=== PATIENT | male | born 1990 | race Hispanic/Latino ===

== ENCOUNTER → 2019-02-10 | Day surgery (SDC) | payer OTHER ==
[~2019-02-10] MED LIST: ACETAMINOPHEN 1000 MG/100 ML 100 ML IV ONE; BACITRACIN ZINC 15 GM OINT ONE; CEFAZOLIN SOD 1 GM/NS 50ML 50 ML IV ONE; DEXAMETHASONE SOD PHOS INJ 4 MG/ML VIAL ONE; FENTANYL CITRATE/PF 100MCG/2 ML INJ ONE; KETOROLAC TROMETHAMINE 30 MG/ML VIAL ONE; LIDOCAINE HCL 2% LOCAL INJ 5 ML SDV VIAL INJ ONE; MIDAZOLAM HCL 2 MG/2 ML VIAL ONE; ONDANSETRON HCL INJ 2MG/ML 2ML 2 MG/ML VIAL ONE; PROPOFOL IV EMULSION 10 MG/ML 20 ML VIAL ONE; SEVOFLURANE INHAL SOLN 250 ML PEN BTL ONE
[2019-02-10 15:30] VITALS: BP 124/73
--- NOTE | 2019-02-17 14:19 | Operative Report ---
DATE OF PROCEDURE: 02/10/2019 SURGEON: Alex Todd MD LABELING STRATEGIST: Burton Ortiz, certified PA. PREOPERATIVE DIAGNOSIS: Left index finger, middle phalanx open fracture. POSTOPERATIVE DIAGNOSIS: Left index finger, middle phalanx open fracture. PROCEDURE: Left middle and index finger irrigation and debridement, closed reduction, and percutaneous pin fixation. INDICATIONS: The patient is a 28-year-old gentleman, who presented to the office with an open fracture of his left index finger. The fracture involves the distal condyles of his middle phalanx. There is marked displacement. There is an open wound over the dorsum of the joint. The findings and options have been discussed. We recommended an irrigation and debridement and percutaneous pin fixation. The risks and benefits, and likelihood of stiffness in the future were explained. He states he understands and wishes to proceed. PROCEDURE IN DETAIL: The patient was brought to the operating room and placed under general anesthetic. His left upper extremity was prepped and draped in the sterile manner. A preoperative time-out was performed. The index finger was thoroughly irrigated and scrubbed with Betadine. The wound was roughly 5 mm in length. Using a C-arm image intensifier, an initial 0.045 K-wire was placed from the distal phalanx across the DIP joint into the middle phalanx while the fracture was reduced. There were some persistent displacement of the condyles. A secondary 0.045 K-wire was placed. Attempts were made to further reduce the opposite condyle. This was extremely small and as soon as it was reduced, it quickly displaced. It was just a small bony fragment. I decided that a little could be done other than excision of this piece of bone. We elected to just leave it in place. The wound was covered with a sterile bandage. A splint was applied. He was extubated and transported to the recovery room in stable condition. Blood loss was less than 5 mL and all needle and sponge counts were correct. Alex Todd MD DR/JOSEPH /[id number]
== END | disposition home or self-care (01) ==
LOC: OR 11:37
PROVIDERS: ATTEND Specialist
DX: S62.621B Displaced fracture of middle phalanx of left index finger, initial encounter for open fracture (principal); F17.210 Nicotine dependence, cigarettes, uncomplicated; X58.XXXA Exposure to other specified factors, initial encounter; Y93.89 Activity, other specified; Y92.89 Other specified places as the place of occurrence of the external cause; Y99.0 Civilian activity done for income or pay; Z68.33 Body mass index [BMI] 33.0-33.9, adult
CPT/HCPCS: 26727; C1713; J0131; J0690; J1100; J1885; J2001; J2250; J2405; J2704; 76000